=== PATIENT | male | born 1980 | race Two or more races ===

== ENCOUNTER 2025-03-23 11:37 | Emergency (ER) | payer OTHER, SELFPAY ==
--- NOTE | 2025-03-23 12:19 | XR_ITS ---
Examination: Wrist, right 3 views Technique: Wrist AP, oblique, lateral 3 views Date and time of exam: March 23, 2025 1235 hours INDICATIONS: Right wrist pain beginning 2 days ago FINDINGS: Mild narrowing radiocarpal and first carpometacarpal joints No fracture No cortical bone destruction No foreign body IMPRESSION: No fracture
[2025-03-23 12:27] VITALS: BP 141/91; PULSE 84; RESP 18; TEMP 37.2; O2SAT 96; BMI 43.0
--- NOTE | 2025-03-23 12:39 | PD.EDHAND ---
Upper Extremity Injury RME/HPI General Chief Complaint: Hand/Wrist Problems Stated Complaint: RIGHT WRIST PAIN X2DAYS, INJURED AT WORK Time Seen by Provider: 03/23/25 12:16 Source: patient Arrival date/time: 03/23/25 11:37 44-year-old male with no known medical history presents to the emergency room with a chief complaint of pain and tenderness to his right wrist x 2 days Mode of arrival: ambulatory Limitations: no limitations Related Data Allergies Allergy/AdvReac Type Severity Reaction Status Date / Time No Known Allergies Allergy Unknown Uncoded 03/23/25 11:40 Review of Systems Review of Systems Systems Reviewed: All systems reviewed, normal except as documented Constitutional Constitutional: Reports system reviewed and no additional complaints, except as documented, Denies fatigue, Denies fever(s), Denies headache(s) and Denies weakness Eyes Eyes: Reports system reviewed and no additional complaints, except as documented, Denies blurry vision and Denies change in vision ENT Ears, Nose, Mouth, and Throat: Reports system reviewed and no additional complaints, except as documented, Denies otalgia, Denies headache(s), Denies nasal congestion, Denies throat swelling and Denies vertigo Cardiovascular Cardiovascular: Reports system reviewed and no additional complaints, except as documented, Denies chest pain, Denies dyspnea and Denies dyspnea on exertion Respiratory Respiratory: Reports system reviewed and no additional complaints, except as documented, Denies chest congestion, Denies cough, Denies dyspnea, Denies dyspnea on exertion and Denies wheezing Gastrointestinal Gastrointestinal: Reports system reviewed and no additional complaints, except as documented, Denies abdominal pain, Denies cramping, Denies nausea and Denies vomiting Genitourinary Genitourinary: Reports system reviewed and no additional complaints, except as documented, Denies dysuria and Denies hematuria Musculoskeletal Musculoskeletal: Reports system reviewed and no additional complaints, except as documented, Reports arthralgias, Denies back pain, Reports joint swelling and Reports limited range of motion Integumentary/Breasts Skin/Breast: Reports system reviewed and no additional complaints, except as documented and Denies wounds Neurologic Neurologic: Reports system reviewed and no additional complaints, except as documented, Denies confusion, Denies headache(s), Denies lack of coordination, Denies vertigo and Denies weakness Psychiatric Psychiatric: Reports system reviewed and no additional complaints, except as documented, Denies anxiety, Denies confusion, Denies depression, Denies paranoia, Denies suicidal ideation and Denies tactile hallucinations Endocrine Endocrine: Reports system reviewed and no additional complaints, except as documented and Denies fatigue Hematologic/Lymphatic Hematologic/Lymphatic: Reports system reviewed and no additional complaints, except as documented and Denies lymphadenopathy Allergic/Immunologic Allergic/Immunologic: Reports system reviewed and no additional complaints, except as documented, Denies throat swelling, Denies urticaria and Denies wheezing ED Exam General Limitations: Present no limitations General appearance: Present alert and in no apparent distress Head Head exam: Present atraumatic Eye Eye exam: Present normal appearance, PERRL and EOMI ENT ENT exam: Present normal exam, normal oropharynx and mucous membranes moist Neck Neck exam: Present normal inspection, full ROM and trachea midline Chest Chest inspection: Present normal inspection and symmetric chest wall rise Respiratory Respiratory exam: Present normal lung sounds bilaterally Cardiovascular Cardiovascular exam: Present regular rate, normal rhythm and normal heart sounds Abdominal Exam Abdominal exam: Present soft and normal bowel sounds Extremities Exam Extremities exam: Present normal inspection and full ROM Expanded Upper Extremity Exam Shoulder exam: Present normal inspection Arm exam: Present normal inspection Elbow exam: Present normal inspection Forearm/Wrist exam: Present tenderness and swelling; Absent tenderness over anatomical snuff box or pain with axial thumb loading Hand exam: Present normal inspection Back Exam Back exam: Present normal inspection and full ROM Neurological Exam Neurological exam: Present alert, oriented X3 and CN II-XII intact Psychiatric Psychiatric exam: Present normal affect and normal mood Skin Skin exam: Present warm, dry, intact and normal color Course Quality Measures none Orders Category Date Time Status herlinda wrap [Splint / Immobilizer] STAT Care 03/23/25 12:52 Completed XR wrist comp RT min 3V Stat Exams 03/23/25 12:19 Completed Vital Signs Vital signs: Vital Signs Temperature 99.0 F 03/23/25 12:27 Pulse Rate 84 03/23/25 12:27 Respiratory Rate 18 03/23/25 12:27 Blood Pressure 141/91 H 03/23/25 12:27 Pulse Oximetry (%) 96 03/23/25 12:27 Oxygen Delivery Method Room Air 03/23/25 12:27 Extremity Injury MDM Narrative MDM Narrative:: 44-year-old male with no known medical history presents to the emergency room with a chief complaint of pain and tenderness to his right wrist x 2 days Patient is hemodynamically stable and in no apparent distress Physical examination shows tenderness to mild swelling to the patient's right wrist. X-ray of the right wrist was completed was negative for any acute fracture or dislocation Patient was discharged and educated to follow-up with primary care provider in the next 24 to 48 hours and return to the emergency room for any evidence of worsening signs or symptoms Patient data External records reviewed:: [facility] previous records Clinical information provided by:: patient Social determinants that could affect healthcare access:: none Patient has the following chronic illnesses:: No chronic illness How is presenting disease/condition affected by chronic disease/condition?: no chronic disease Evaluation data The following diagnostics were reviewed and interpreted by me:: lab results and radiology exam(s) Lab and/or radiology exams considered but not ordered:: Labs and radiology exams considered and ordered Interpretation Summary: X-ray right wrist-FINDINGS: Mild narrowing radiocarpal and first carpometacarpal joints No fracture No cortical bone destruction No foreign body IMPRESSION: No fracture Medications / Prescriptions Medications or Prescriptions considered but not ordered:: Medication given Medication administrations:: Medication given Consultations Consultation(s) initiated? (list below): No Diagnosis Upper Extremity Injury Differential Diagnosis: sprain and strain of wrist and other (Wrist fracture) Most likely diagnosis given after review of the tests above:: Sprain and strain of breath Admission Indicated Admission indicated?: not indicated Admission Request Was there a request for admission?: No Disposition Plan Disposition Plan: Discharge Discharge Attestation Discharge Attestation: The patient and all family members were given an opportunity to ask questions and understood the discharge instructions. Discharge instructions specifically effects, indications for sooner follow up or return to the emergency department, and the expected course of current diagnosis. Patient condition: Stable Discharge Plan Plan Patient Disposition: HOME (Self Care) Disposition Comment: Stable Prescriptions/Referrals Referrals: Steve Iqbal [Primary Care Provider] - In 1 week Problem List Clinical Impression: Sprain and strain of wrist Patient/Caregiver Discharge Instructions Additional Instructions: Please follow-up with your primary care provider in the next 24 to 48 hours. X-ray of your wrist was completed and was negative for any acute fracture or dislocation For any evidence of worsening signs or symptoms return to emergency room immediately Print Language: Trinidadian Stand Alone Forms: Teena Award Info., Work/School Release, Patient Portal Info Letter PAT/BRISEIDA Supervising Physician PAT/BRISEIDA Supervising Physician: Dr. Brewer
== END 2025-03-23 13:10 | disposition home or self-care (01) ==
PROVIDERS: Emergency Provider Emergency Medicine; PCP Internal Medicine
DX: S63.501A Unspecified sprain of right wrist, initial encounter (principal); X58.XXXA Exposure to other specified factors, initial encounter; Y99.0 Civilian activity done for income or pay
CPT/HCPCS: 73110; 99283

== ENCOUNTER → 2025-05-22 | Outpatient (CLI) | payer OTHER, SELFPAY ==
--- NOTE | 2025-05-22 14:45 | XR_ITS ---
Examination: MRI right wrist, without contrast Date and time of exam: May 22, 2025 1606 hours INDICATIONS: Ulnar sided right wrist pain 2 months work injury Technique: Multiple axial sagittal and coronal images of the right wrist have been obtained with the Siemens high-resolution 1.5 Peri MRI scanner. Images obtained include T2-weighted fat-suppressed sagittal sections, TR 3500, TE 46, T2 weighted coronal fat suppressed images, TR 3050, TE 84, T2-weighted transverse fat suppressed images, TR 3260, TE 63, proton density transverse images, TR 4720 TE 46, and T1 weighted coronal images, TR 560, TE 13. Findings: Adequate marrow signal distal radius and distal ulna and carpal bones No occult fracture or bone contusion marrow edema or avascular necrosis Intact triangular fibrocartilage Flexor tendons intact Extensor tendons intact Tendinitis involving the extensor carpi radialis brevis, extensor carpi radialis longus No ganglion cyst Mild osteoarthritis first carpometacarpal joint IMPRESSION: No occult fracture Intact triangular fibrocartilage Mild osteoarthritis first carpometacarpal joint. Tendinitis involving extensor carpi radialis brevis, extensor carpi radialis longus
== END | disposition home or self-care (01) ==
PROVIDERS: PCP Family Medicine; Referring Provider Physician Assistant; Visit Provider Physician Assistant
DX: M18.11 Unilateral primary osteoarthritis of first carpometacarpal joint, right hand (principal); M77.8 Other enthesopathies, not elsewhere classified
CPT/HCPCS: 73221